=== PATIENT | male | born 1965 | race Caucasian/White ===

== ENCOUNTER 2021-01-22 05:06 | Emergency (ER) | payer MEDICAID ==
[~2021-01-22] VITALS: Ht 175.3 cm; Wt 91.0 kg
--- NOTE | 2021-01-22 05:40 | NUR ---
Pt to ER stating he hasn't been able to sleep well the last few days. Pt states this am he felt more anxious that normal. Pt states having some SOB, had cold sweats, a little nausea, and just didn't feel himself. Pt to ER, pt states he feel a little better. Pt is P/W/D. EKG done in triage. Pt to room, on monitor. Warm blanket given. Will monitor.
[2021-01-22 05:55] LABS: BASOPHILS % (AUTO) 0 % (0-1); EOSINOPHILS % (AUTO) 3 % (1-7); LYMPHOCYTES % (AUTO) 18 % (22-44); MD NO; MEAN CORPUSCULAR HEMOGLOBIN 34.2 pg (27.5-34.5); MEAN CORPUSCULAR HGB CONC 34.2 g/dL (33.2-36.2); MEAN PLATELET VOLUME 7.7 fL (7.4-10.4); MONOCYTES % (AUTO) 15 % (2-9); NEUTROPHILS % (AUTO) 65 % (42-75); PLATELET COUNT 146 x10^3/uL (130-400)
[2021-01-22 06:03] LABS: ALANINE AMINOTRANSFERASE 94 U/L (12-78); ANION GAP 9 mmol/L (5-15); CHLORIDE 102 mmol/L (98-107)
[2021-01-22 06:08] LABS: ALKALINE PHOSPHATASE 59 U/L (45-117); TOTAL PROTEIN 7.7 g/dL (6.4-8.2); TROPONIN I < 0.015 ng/mL (0.000-0.045)
--- NOTE | 2021-01-22 06:09 | NUR ---
Pt states feeling better. States he feels like he is just anxious. Pt remains on monitor. BP comming down a little. Pt remains A&O x 4. Pt with non -labored breathing, pt P/W/D. Pt denies CP. Will monitor.
[2021-01-22] MEDS ORDERED: LISINOPRIL 20 MG TABLET PO ONE (06:30)
[2021-01-22] MEDS ORDERED: LORazepam 1MG TABLET PO ONE (06:30)
[2021-01-22] MEDS ORDERED: LISINOPRIL 20 MG TABLET ONE (06:37)
[2021-01-22] MEDS ORDERED: LORazepam 1MG TABLET ONE (06:38)
--- NOTE | 2021-01-22 06:43 | NUR ---
IV placed for CT. Pt medicated per order for anxiety and BP. Pt to CT. Pt with no changes. Will monitor.
--- NOTE | 2021-01-22 06:50 | NUR ---
Report to day shift RN's
[2021-01-22] MEDS ORDERED: OMNIPAQUE 350 MG/ML, 75ML BOTTLE ONE (06:54)
--- NOTE | 2021-01-22 07:08 | NUR ---
assuming care of patient after report from tiffanie rn, pt sitting up in bed, vss, postioned to comfort
[2021-01-22 08:09] VITALS: BP 182/100
--- NOTE | 2021-01-22 08:17 | NUR ---
Patient/Caregiver given discharge instructions and they have confirmed that they understand the instructions. Patient ambulatory with steady gait.
== END 2021-01-22 08:13 | disposition home or self-care (01) ==
LOC: ED 06:36
DX: J18.9 Pneumonia, unspecified organism (principal); I10 Essential (primary) hypertension; Z20.822 Contact with and (suspected) exposure to COVID-19
CPT/HCPCS: 36415; 71045; 71275; 80053; 84484; 85025; 85379; 93005; 99285; Q9967; U0003